=== PATIENT | female | born 1975 | race Caucasian/White ===

== ENCOUNTER 2018-04-13 11:04 | Emergency (ER) | payer SELFPAY ==
[2018-04-13 11:50] VITALS: BP 126/88
--- NOTE | 2018-04-13 12:53 | Emergency Department Report ---
ED Female HPI - General Chief complaint: Urogenital-Female Stated complaint: LWR ABD PAIN/ PRESSURE DURING URINATION Time Seen by Provider: 04/13/18 11:59 Source: patient Mode of arrival: Ambulatory Limitations: No Limitations - History of Present Illness Initial comments: This is a 42-year-old female that presents with urine retention and pelvic pressure this morning. She has a history of hypertension and fibroids and had an ablation in November 2014 but reports symptoms improved after procedure. Patient reports voiding around 4 AM and returning back to sleep. She woke up around 6 AM with urgency and frequency but could not void. She called her primary care provider Dr. Vallejo. Dr. Vallejo nurse told her to take Azo and they will call in a prescription because it could potentially be a urinary tract infection. Patient started taking AZO pressure increased she still was unable to urinate. He decided to come in for evaluation. Denies frequency, urgency, dysuria, fever, chest pain, and shortness of breath. MD Complaint: pelvic pain, other (urinary retention) -: This morning Location: suprapubic Radiation: non-radiating Severity: mild Severity scale (0 -10): 2 Quality: aching Consistency: constant Improves with: urination Worsens with: none Are you Now?: No Associated Symptoms: denies other symptoms. denies: vaginal discharge, vaginal bleeding, abdominal pain, nausea/vomiting, fever/chills, headaches, loss of appetite, dysuria, hematuria, rash, seizure, shortness of breath, syncope, weakness - Related Data Sexually active: Yes Home Medications Medication Instructions Recorded Confirmed Last Taken Ibuprofen [Motrin] 800 mg PO Q8H PRN 10/22/14 10/22/14 10/21/14 Iron Carb,Gl/FA/B12/C/Docusate 1 each PO DAILY 10/22/14 10/22/14 10/21/14 [Ferralet 90 Dual-Iron Tablet] Norgestimate-Ethinyl Estradiol 1 each PO DAILY 10/22/14 10/22/14 10/21/14 [Sprintec 28 Day Tablet] Previous Rx's Medication Instructions Recorded Last Taken Type Meclizine HCl [Antivert] 25 mg PO TID PRN #20 tablet 10/22/14 Unknown Rx amLODIPine [Norvasc] 2.5 mg PO DAILY 30 Days tab 10/22/14 Unknown Rx Phenazopyridine [Pyridium] 200 mg PO TID #6 tab 04/13/18 Unknown Rx Sulfamethoxazole/Trimethoprim 1 each PO BID #6 tablet 04/13/18 Unknown Rx [Bactrim DS TAB] Allergies Allergy/AdvReac Type Severity Reaction Status Date / Time No Known Allergies Allergy Unverified 10/21/14 20:13 ED Review of Systems ROS: Stated complaint: LWR ABD PAIN/ PRESSURE DURING URINATION Other details as noted in HPI Constitutional: denies: chills, fever Respiratory: denies: cough, shortness of breath, wheezing Cardiovascular: denies: chest pain, palpitations Gastrointestinal: abdominal pain (suprapubic pressure). denies: nausea, vomiting, diarrhea Genitourinary: denies: urgency, dysuria, frequency, discharge Musculoskeletal: denies: back pain, joint swelling, arthralgia, myalgia Neurological: denies: headache, weakness, numbness, paresthesias Psychiatric: denies: anxiety, depression ED Past Medical Hx - Past Medical History Hx Hypertension: Yes Additional medical history: Uterine fibroids with the current bleeding - Surgical History Past Surgical History?: No - Social History Smoking Status: Never Smoker Substance Use Type: None - Medications Home Medications: Home Medications Medication Instructions Recorded Confirmed Last Taken Type Ibuprofen [Motrin] 800 mg PO Q8H PRN 10/22/14 10/22/14 10/21/14 History Iron Carb,Gl/FA/B12/C/Docusate 1 each PO DAILY 10/22/14 10/22/14 10/21/14 History [Ferralet 90 Dual-Iron Tablet] Meclizine HCl [Antivert] 25 mg PO TID PRN #20 tablet 10/22/14 Unknown Rx Norgestimate-Ethinyl Estradiol 1 each PO DAILY 10/22/14 10/22/14 10/21/14 History [Sprintec 28 Day Tablet] amLODIPine [Norvasc] 2.5 mg PO DAILY 30 Days tab 10/22/14 Unknown Rx Phenazopyridine [Pyridium] 200 mg PO TID #6 tab 04/13/18 Unknown Rx Sulfamethoxazole/Trimethoprim 1 each PO BID #6 tablet 04/13/18 Unknown Rx [Bactrim DS TAB] ED Physical Exam - General Limitations: No Limitations General appearance: alert, in no apparent distress - Respiratory Respiratory exam: Present: normal lung sounds bilaterally. Absent: respiratory distress - Cardiovascular Cardiovascular Exam: Present: regular rate, normal rhythm, normal heart sounds. Absent: systolic murmur, diastolic murmur, rubs, gallop - GI/Abdominal GI/Abdominal exam: Present: soft, normal bowel sounds. Absent: distended, tenderness, guarding, rebound, rigid, organomegaly, mass - External exam: Present: normal external exam. Absent: erythema, swelling, lesions, lacerations, ecchymosis, bleeding - Back Exam Back exam: Present: normal inspection, full ROM. Absent: CVA tenderness (R), CVA tenderness (L), muscle spasm, paraspinal tenderness, vertebral tenderness, rash noted - Neurological Exam Neurological exam: Present: alert, oriented X3, normal gait - Psychiatric Psychiatric exam: Present: normal affect, normal mood - Skin Skin exam: Present: warm, dry, intact, normal color. Absent: rash ED Course Vital Signs 04/13/18 04/13/18 11:46 13:35 Temperature 97.6 F Pulse Rate 80 Respiratory 20 16 Rate Blood Pressure 126/88 O2 Sat by Pulse 99 Oximetry ED Medical Decision Making - Medical Decision Making This is a 42-year-old female who presents with pelvic pressure and unable to void since this morning. Patient was examined by me. Vitals are normal and in no acute distress. Garber placed and 1000 mL out. Patient reports feeling better. Urinalysis obtained with positive nitrates and blood. Patient unsure of antibiotic called in to pharmacy by Dr. Rogers who is primary care provider. Start bactrim DS po bid x 3 days and pyridium 200 mg po tid x 2 days. Garber removed and instructed to return if she have not voided in 4-6 hours. Increase fluid intake. Discharged home in stable condition. Discussed plan with patient and she agreed with plan. F/U with Dr. Vallejo in 2-3 days. Critical care attestation.: If time is entered above; I have spent that time in minutes in the direct care of this critically ill patient, excluding procedure time. ED Disposition Clinical Impression: UTI (urinary tract infection) Qualifiers: Urinary tract infection type: acute cystitis Hematuria presence: with hematuria Qualified Code(s): N30.01 - Acute cystitis with hematuria Disposition: TO HOME OR SELFCARE Is pt being admited?: No Does the pt Need Aspirin: No Condition: Stable Instructions: Urinary Tract Infection in Women (ED) Additional Instructions: Increase fluid intake to 1-2 L water daily. Complete full course of antibiotics as prescribed. Avoid drinking alcohol beverages while taking antibiotics and up to 24 hours after completion. Follow-up with primary care provider Dr. Vallejo in 2-3 days. Return to ER in 4-6 hours if you have not urinated or have the urgency to. Prescriptions: Phenazopyridine [Pyridium] 200 mg PO TID #6 tab Sulfamethoxazole/Trimethoprim [Bactrim DS TAB] 1 each PO BID #6 tablet Referrals: [facility] [Provider Group] - 3-5 Days [facility] [Provider Group] - 3-5 Days Time of Disposition: 14:05 Print Language: VIETNAMESE
[2018-04-13 13:12] LABS: Bilirubin,Urine NEG (Negative); Blood,Urine SM (Negative); Color,Urine Amber (Yellow); Protein,Urine <15 mg/dL mg/dL (Negative); WBC,Urine < 1.0 /HPF (0.0-6.0)
== END 2018-04-13 14:44 | disposition home or self-care (01) ==
LOC: ED 11:04
DX: N30.01 Acute cystitis with hematuria (principal); I10 Essential (primary) hypertension; D25.9 Leiomyoma of uterus, unspecified
CPT/HCPCS: 51701; 81001

== ENCOUNTER 2018-06-30 12:51 | Emergency (ER) | payer SELFPAY ==
[2018-06-30 12:59] VITALS: BP 123/85
[2018-06-30] MEDS ORDERED: MOTRIN PO ONE (13:36)
--- NOTE | 2018-06-30 13:37 | Emergency Department Report ---
ED Female HPI - General Chief complaint: Urogenital-Female Stated complaint: UNABLE TO URINATE Time Seen by Provider: 06/30/18 13:04 Source: patient Mode of arrival: Ambulatory Limitations: No Limitations - History of Present Illness Initial comments: 43 yo female with a past medical history hypertension, uterine fibroids, and one episode of urinary retention in March presents to the hospital complaining of inability to urinate since last night. Patient complains of 10/10 suprapubic pain with palpation with abdominal distention. No nausea, vomiting, or fever reported. Patient had several days of preceding dysuria. Patient was seen and evaluated here 04/13/2018 for urinary retention and UTI. Initial urinalysis of 1000 mL's reported after Jaeger insertion. Patient states the Jaeger was removed prior to her discharge she had no problems urinating until today. She was discharged on antibiotics and Pyridium time. She did follow with her primary care doctor but was not evaluated by a urologist. - Related Data Home Medications Medication Instructions Recorded Confirmed Last Taken Ibuprofen [Motrin] 800 mg PO Q8H PRN 10/22/14 10/22/14 10/21/14 Iron Carb,Gl/FA/B12/C/Docusate 1 each PO DAILY 10/22/14 10/22/14 10/21/14 [Ferralet 90 Dual-Iron Tablet] Norgestimate-Ethinyl Estradiol 1 each PO DAILY 10/22/14 10/22/14 10/21/14 [Sprintec 28 Day Tablet] Previous Rx's Medication Instructions Recorded Last Taken Type Meclizine HCl [Antivert] 25 mg PO TID PRN #20 tablet 10/22/14 Unknown Rx RX: amLODIPine [Norvasc] 2.5 mg PO DAILY 30 Days tab 10/22/14 Unknown Rx Sulfamethoxazole/Trimethoprim 1 each PO BID #6 tablet 04/13/18 Unknown Rx [Bactrim DS TAB] Ibuprofen [Motrin] 600 mg PO Q8H PRN #20 tablet 06/30/18 Unknown Rx Nitrofurantoin Monohyd/M-Cryst 100 mg PO BID #10 capsule 06/30/18 Unknown Rx [Macrobid 100 mg Capsule] RX: Phenazopyridine [Pyridium] 200 mg PO TID #6 tab 06/30/18 Unknown Rx Allergies Allergy/AdvReac Type Severity Reaction Status Date / Time No Known Allergies Allergy Verified 06/30/18 12:57 ED Review of Systems ROS: Stated complaint: UNABLE TO URINATE Other details as noted in HPI Comment: All other systems reviewed and negative ED Past Medical Hx - Past Medical History Hx Hypertension: Yes Additional medical history: Uterine fibroids with the current bleeding - Social History Smoking Status: Never Smoker Substance Use Type: None - Medications Home Medications: Home Medications Medication Instructions Recorded Confirmed Last Taken Type Ibuprofen [Motrin] 800 mg PO Q8H PRN 10/22/14 10/22/14 10/21/14 History Iron Carb,Gl/FA/B12/C/Docusate 1 each PO DAILY 10/22/14 10/22/14 10/21/14 History [Ferralet 90 Dual-Iron Tablet] Meclizine HCl [Antivert] 25 mg PO TID PRN #20 tablet 10/22/14 Unknown Rx Norgestimate-Ethinyl Estradiol 1 each PO DAILY 10/22/14 10/22/14 10/21/14 History [Sprintec 28 Day Tablet] RX: amLODIPine [Norvasc] 2.5 mg PO DAILY 30 Days tab 10/22/14 Unknown Rx Sulfamethoxazole/Trimethoprim 1 each PO BID #6 tablet 04/13/18 Unknown Rx [Bactrim DS TAB] Ibuprofen [Motrin] 600 mg PO Q8H PRN #20 tablet 06/30/18 Unknown Rx Nitrofurantoin Monohyd/M-Cryst 100 mg PO BID #10 capsule 06/30/18 Unknown Rx [Macrobid 100 mg Capsule] RX: Phenazopyridine [Pyridium] 200 mg PO TID #6 tab 06/30/18 Unknown Rx ED Physical Exam - General Limitations: No Limitations - Other Other exam information: General: No limitations, patient is alert in no acute distress Head exam: Atraumatic, normocephalic Eyes exam: Normal appearance ENT: Moist mucous membrane, normal oropharynx Neck exam: Normal inspection, full range of motion, no meningismus nontender Respiratory exam: Clear to auscultation bilateral, no wheezes, rales, crackles Cardiovascular: Normal rate and rhythm, normal heart sounds Abdomen: Soft, nondistended (after Jaeger insertion), and suprapubic tenderness, with normal bowel sounds, no rebound, or guarding : Jaeger inserted by RN with several 100 mL initial output Extremity: Full range of motion normal inspection no deformity Back: Normal Inspection, full range of motion, no tenderness Neurologic: Alert, oriented x3, cranial nerves intact, no motor or sensory deficit Psychiatric: normal affect, normal mood Skin: Warm, dry, intact ED Course Vital Signs 06/30/18 12:57 Temperature 98.7 F Pulse Rate 75 Respiratory 16 Rate Blood Pressure 123/85 O2 Sat by Pulse 100 Oximetry ED Medical Decision Making - Lab Data Result diagrams: 06/30/18 13:18 06/30/18 13:18 Lab Results 06/30/18 06/30/18 06/30/18 Range/Units 13:03 13:18 13:18 WBC 6.3 (4.5-11.0) K/mm3 RBC 4.85 (3.65-5.03) M/mm3 Hgb 14.5 H (10.1-14.3) gm/dl Hct 42.6 (30.3-42.9) % MCV 88 (79-97) fl MCH 30 (28-32) pg MCHC 34 (30-34) % RDW 13.3 (13.2-15.2) % Plt Count 270 (140-440) K/mm3 Lymph % (Auto) 28.2 (13.4-35.0) % [place] % (Auto) 9.3 H (0.0-7.3) % Eos % (Auto) 4.5 H (0.0-4.3) % Baso % (Auto) 0.5 (0.0-1.8) % Lymph # 1.8 (1.2-5.4) K/mm3 [place] # 0.6 (0.0-0.8) K/mm3 Eos # 0.3 (0.0-0.4) K/mm3 Baso # 0.0 (0.0-0.1) K/mm3 Seg Neutrophils % 57.5 (40.0-70.0) % Seg Neutrophils # 3.6 (1.8-7.7) K/mm3 Sodium 135 L (137-145) mmol/L Potassium 3.9 (3.6-5.0) mmol/L Chloride 100.0 (98-107) mmol/L Carbon Dioxide 24 (22-30) mmol/L Anion Gap 15 mmol/L BUN 5 L (7-17) mg/dL Creatinine 0.6 L (0.7-1.2) mg/dL Estimated GFR > 60 ml/min BUN/Creatinine Ratio 8 % Glucose 92 (65-100) mg/dL Calcium 8.8 (8.4-10.2) mg/dL Urine Color [place] (Yellow) Urine Turbidity Clear (Clear) Urine pH 7.0 (5.0-7.0) Ur Specific [place] 1.003 (1.003-1.030) Urine Protein <15 mg/dl (Negative) mg/dL Urine Glucose (UA) Neg (Negative) mg/dL Urine Ketones Neg (Negative) mg/dL Urine Blood Mod (Negative) Urine Nitrite Pos (Negative) Urine Bilirubin Neg (Negative) Urine Urobilinogen < 2.0 (<2.0) mg/dL Ur Leukocyte Esterase Neg (Negative) Urine WBC (Auto) 0.0 (0.0-6.0) /HPF Urine RBC (Auto) 8.0 (0.0-6.0) /HPF - Medical Decision Making urine retention + uop after jaeger ua + nitrates: macrobid initiated motrin for pain will d/c with meds pt declines to keep jaeger inserted warned of possibility of recurrent obstruction Urology f/u provided - Differential Diagnosis urinary retention, UTI, renal failure Critical Care Time: No Critical care attestation.: If time is entered above; I have spent that time in minutes in the direct care of this critically ill patient, excluding procedure time. ED Disposition Clinical Impression: Urine retention, UTI (urinary tract infection) Disposition: TO HOME OR SELFCARE Is pt being admited?: No Does the pt Need Aspirin: No Condition: Stable Instructions: Urinary Tract Infection in Women (ED), Acute Urinary Retention in Women (ED) Additional Instructions: Take the medication as prescribed. Follow up with your doctor and urologist. Return if symptoms worsen as indicated by your discharge instructions Prescriptions: Ibuprofen [Motrin] 600 mg PO Q8H PRN #20 tablet PRN Reason: Pain Nitrofurantoin Monohyd/M-Cryst [Macrobid 100 mg Capsule] 100 mg PO BID #10 capsule RX: Phenazopyridine [Pyridium] 200 mg PO TID #6 tab Referrals: PRIMARY CARE, [Primary Care Provider] - 3-5 Days CAMERON LEÓN MD [Staff Physician] - 3-5 Days (Urologist) Time of Disposition: 14:56
[2018-06-30 13:38] LABS: Basophils % (Auto) 0.5 % (0.0-1.8); Eosinophils # (Auto) 0.3 K/mm3 (0.0-0.4); Eosinophils % (Auto) 4.5 % (0.0-4.3); Hematocrit 42.6 % (30.3-42.9); Hemoglobin 14.5 gm/dl (10.1-14.3); Lymphocytes # (Auto) 1.8 K/mm3 (1.2-5.4); Lymphocytes % (Auto) 28.2 % (13.4-35.0); Mean Corpuscular HGB Conc 34 % (30-34); Mean Corpuscular Hemoglobin 30 pg (28-32); Mean Corpuscular Volume 88 fl (79-97); Monocytes # (Auto) 0.6 K/mm3 (0.0-0.8); Monocytes % (Auto) 9.3 % (0.0-7.3); Platelet Count 270 K/mm3 (140-440); Red Blood Count 4.85 M/mm3 (3.65-5.03); Red Cell Distribution Width 13.3 % (13.2-15.2)
[2018-06-30 13:51] LABS: Bilirubin,Urine NEG (Negative); Blood,Urine MOD (Negative); Color,Urine Amber (Yellow); Protein,Urine <15 mg/dL mg/dL (Negative); Urobilinogen,Urine < 2.0 mg/dL (<2.0)
[2018-06-30] MEDS ORDERED: MACROBID PO ONE (14:28)
[2018-06-30] MEDS ORDERED: MACROBID ONE (14:42)
[2018-06-30 14:48] LABS: BUN/Creatinine Ratio 8; Blood Urea Nitrogen 5 mg/dL (7-17); Calcium 8.8 mg/dL (8.4-10.2); Hemolysis Index 7
== END 2018-06-30 15:15 | disposition home or self-care (01) ==
LOC: ED 12:51
DX: N39.0 Urinary tract infection, site not specified (principal); R33.9 Retention of urine, unspecified; I10 Essential (primary) hypertension; Z79.899 Other long term (current) drug therapy
CPT/HCPCS: 36415; 80048; 81001; 85025; 87086; 99283

== ENCOUNTER 2019-01-07 10:11 | Emergency (ER) | payer OTHER ==
[2019-01-07 10:38] VITALS: BP 134/70
[2019-01-07 11:18] LABS: Basophils % (Auto) 0.4 % (0.0-1.8); Eosinophils # (Auto) 0.3 K/mm3 (0.0-0.4); Eosinophils % (Auto) 5.3 % (0.0-4.3); Hematocrit 39.9 % (30.3-42.9); Hemoglobin 13.5 gm/dl (10.1-14.3); Lymphocytes # (Auto) 1.6 K/mm3 (1.2-5.4); Lymphocytes % (Auto) 26.6 % (13.4-35.0); Mean Corpuscular HGB Conc 34 % (30-34); Mean Corpuscular Volume 89 fl (79-97); Monocytes # (Auto) 0.6 K/mm3 (0.0-0.8); Monocytes % (Auto) 9.4 % (0.0-7.3); Platelet Count 258 K/mm3 (140-440); Red Blood Count 4.51 M/mm3 (3.65-5.03); Red Cell Distribution Width 13.3 % (13.2-15.2)
[2019-01-07 11:22] LABS: Bilirubin,Urine NEG (Negative); Blood,Urine SM (Negative); Color,Urine Straw (Yellow); Protein,Urine <15 mg/dL mg/dL (Negative); RBC,Urine < 1.0 /HPF (0.0-6.0); Urobilinogen,Urine < 2.0 mg/dL (<2.0); WBC,Urine < 1.0 /HPF (0.0-6.0)
[2019-01-07 11:57] LABS: BUN/Creatinine Ratio 20; Blood Urea Nitrogen 8 mg/dL (7-17); Calcium 8.6 mg/dL (8.4-10.2); Hemolysis Index 15
--- NOTE | 2019-01-07 12:22 | Emergency Department Report ---
ED Female HPI - General Chief complaint: Abdominal Pain Stated complaint: NO URINATION Time Seen by Provider: 01/07/19 10:51 Source: patient Mode of arrival: Ambulatory Limitations: No Limitations - History of Present Illness Initial comments: Patient is a 34-year-old [place] female who is presenting with urinary retention. Patient states she has not been able to pass urine since E late last night. Patient is a pressure-like sensation in the suprapubic region was radiation to her lower back. Patient states this is occurred twice before and she states she saw a urologist in the past stated that if this ever happens again to make an appointment to see them. There were no procedures were done. Patient states she has a CT scan scheduled for tomorrow by her primary care physician. Patient states last time this occurs she was straight cathed but did not want a Garber catheter at that time. This was several months ago. Patient denies any nausea vomiting fevers chills flank pain at this time. Severity scale (0 -10): 6 Quality: aching Consistency: constant - Related Data Home Medications Medication Instructions Recorded Confirmed Last Taken Ibuprofen [Motrin] 800 mg PO Q8H PRN 10/22/14 10/22/14 10/21/14 Iron Carb,Gl/FA/B12/C/Docusate 1 each PO DAILY 10/22/14 10/22/14 10/21/14 [Ferralet 90 Dual-Iron Tablet] Norgestimate-Ethinyl Estradiol 1 each PO DAILY 10/22/14 10/22/14 10/21/14 [Sprintec 28 Day Tablet] Previous Rx's Medication Instructions Recorded Last Taken Type Meclizine HCl [Antivert] 25 mg PO TID PRN #20 tablet 10/22/14 Unknown Rx amLODIPine [Norvasc] 2.5 mg PO DAILY 30 Days tab 10/22/14 Unknown Rx Sulfamethoxazole/Trimethoprim 1 each PO BID #6 tablet 04/13/18 Unknown Rx [Bactrim DS TAB] Ibuprofen [Motrin] 600 mg PO Q8H PRN #20 tablet 06/30/18 Unknown Rx Nitrofurantoin Monohyd/M-Cryst 100 mg PO BID #10 capsule 06/30/18 Unknown Rx [Macrobid 100 mg Capsule] Phenazopyridine [Pyridium] 200 mg PO TID #6 tab 06/30/18 Unknown Rx Nitrofurantoin Monohyd/M-Cryst 100 mg PO BID #10 capsule 01/07/19 Unknown Rx [Macrobid 100 mg Capsule] Phenazopyridine [Pyridium] 100 mg PO TID 2 Days tab 01/07/19 Unknown Rx Allergies Allergy/AdvReac Type Severity Reaction Status Date / Time No Known Allergies Allergy Verified 06/30/18 12:57 ED Review of Systems ROS: Stated complaint: NO URINATION Other details as noted in HPI Comment: All other systems reviewed and negative ED Past Medical Hx - Past Medical History Previous Medical History?: Yes Hx Hypertension: Yes Additional medical history: Uterine fibroids with the current bleeding. urinary retention x 3 - Surgical History Past Surgical History?: No - Social History Smoking Status: Unknown if ever smoked Substance Use Type: None - Medications Home Medications: Home Medications Medication Instructions Recorded Confirmed Last Taken Type Ibuprofen [Motrin] 800 mg PO Q8H PRN 10/22/14 10/22/14 10/21/14 History Iron Carb,Gl/FA/B12/C/Docusate 1 each PO DAILY 10/22/14 10/22/14 10/21/14 History [Ferralet 90 Dual-Iron Tablet] Meclizine HCl [Antivert] 25 mg PO TID PRN #20 tablet 10/22/14 Unknown Rx Norgestimate-Ethinyl Estradiol 1 each PO DAILY 10/22/14 10/22/14 10/21/14 History [Sprintec 28 Day Tablet] amLODIPine [Norvasc] 2.5 mg PO DAILY 30 Days tab 10/22/14 Unknown Rx Sulfamethoxazole/Trimethoprim 1 each PO BID #6 tablet 04/13/18 Unknown Rx [Bactrim DS TAB] Ibuprofen [Motrin] 600 mg PO Q8H PRN #20 tablet 06/30/18 Unknown Rx Nitrofurantoin Monohyd/M-Cryst 100 mg PO BID #10 capsule 06/30/18 Unknown Rx [Macrobid 100 mg Capsule] Phenazopyridine [Pyridium] 200 mg PO TID #6 tab 06/30/18 Unknown Rx Nitrofurantoin Monohyd/M-Cryst 100 mg PO BID #10 capsule 01/07/19 Unknown Rx [Macrobid 100 mg Capsule] Phenazopyridine [Pyridium] 100 mg PO TID 2 Days tab 01/07/19 Unknown Rx ED Physical Exam - General Limitations: No Limitations General appearance: alert, in no apparent distress - Head Head exam: Present: atraumatic, normocephalic - Eye Eye exam: Present: normal appearance - ENT ENT exam: Present: mucous membranes moist - Neck Neck exam: Present: normal inspection - Respiratory Respiratory exam: Present: normal lung sounds bilaterally. Absent: respiratory distress, wheezes, rales - Cardiovascular Cardiovascular Exam: Present: regular rate, normal rhythm. Absent: systolic murmur, diastolic murmur, rubs, gallop - GI/Abdominal GI/Abdominal exam: Present: soft, distended, tenderness, normal bowel sounds. Absent: guarding, rebound, rigid - Extremities Exam Extremities exam: Present: normal inspection - Back Exam Back exam: Present: normal inspection - Neurological Exam Neurological exam: Present: alert, oriented X3 - Psychiatric Psychiatric exam: Present: normal affect, normal mood - Skin Skin exam: Present: warm, dry, intact, normal color. Absent: rash ED Course Vital Signs 01/07/19 01/07/19 10:37 10:50 Temperature 97.9 F Pulse Rate 79 Respiratory 18 18 Rate Blood Pressure 134/70 O2 Sat by Pulse 98 Oximetry ED Medical Decision Making - Lab Data Result diagrams: 01/07/19 11:08 01/07/19 11:08 Lab Results 01/07/19 01/07/19 01/07/19 Range/Units 10:55 11:08 11:08 WBC 6.1 (4.5-11.0) K/mm3 RBC 4.51 (3.65-5.03) M/mm3 Hgb 13.5 (10.1-14.3) gm/dl Hct 39.9 (30.3-42.9) % MCV 89 (79-97) fl MCH 30 (28-32) pg MCHC 34 (30-34) % RDW 13.3 (13.2-15.2) % Plt Count 258 (140-440) K/mm3 Lymph % (Auto) 26.6 (13.4-35.0) % [place] % (Auto) 9.4 H (0.0-7.3) % Eos % (Auto) 5.3 H (0.0-4.3) % Baso % (Auto) 0.4 (0.0-1.8) % Lymph # 1.6 (1.2-5.4) K/mm3 [place] # 0.6 (0.0-0.8) K/mm3 Eos # 0.3 (0.0-0.4) K/mm3 Baso # 0.0 (0.0-0.1) K/mm3 Seg Neutrophils % 58.3 (40.0-70.0) % Seg Neutrophils # 3.6 (1.8-7.7) K/mm3 Sodium 136 L (137-145) mmol/L Potassium 4.1 (3.6-5.0) mmol/L Chloride 106.0 (98-107) mmol/L Carbon Dioxide 25 (22-30) mmol/L Anion Gap 9 mmol/L BUN 8 (7-17) mg/dL Creatinine 0.4 L (0.7-1.2) mg/dL Estimated GFR > 60 ml/min BUN/Creatinine Ratio 20 % Glucose 109 H (65-100) mg/dL Calcium 8.6 (8.4-10.2) mg/dL Urine Color [place] (Yellow) Urine Turbidity Clear (Clear) Urine pH 7.0 (5.0-7.0) Ur Specific [place] 1.004 (1.003-1.030) Urine Protein <15 mg/dl (Negative) mg/dL Urine Glucose (UA) Neg (Negative) mg/dL Urine Ketones Neg (Negative) mg/dL Urine Blood Sm (Negative) Urine Nitrite Neg (Negative) Urine Bilirubin Neg (Negative) Urine Urobilinogen < 2.0 (<2.0) mg/dL Ur Leukocyte Esterase Neg (Negative) Urine WBC (Auto) < 1.0 (0.0-6.0) /HPF Urine RBC (Auto) < 1.0 (0.0-6.0) /HPF - Medical Decision Making Straight cath was performed and 1 L of clear urine was drained. The patient did immediately have relief. A Garber catheter was then placed and patient was given a leg bag. There is suggested the patient keep the Garber for the next 2-3 days. Also the patient would like a referral to another urologist. Dr. Knowles is on-call and his information is been given for follow-up. Patient's urinalysis is within normal limits and does not show any evidence of infection however the patient will be placed empirically on Macrobid to assure that the patient does not developed a DVT. Critical care attestation.: If time is entered above; I have spent that time in minutes in the direct care of this critically ill patient, excluding procedure time. ED Disposition Clinical Impression: Urinary retention Disposition: - TO HOME OR SELFCARE Is pt being admited?: No Does the pt Need Aspirin: No Condition: Stable Instructions: Acute Urinary Retention in Women (ED) Additional Instructions: Please follow up with Dr. Knowles to have the Garber catheter removed. She unable to follow-up with urologist please return to the emergency department or go to an urgent care to have it removed in the next 3-5 days. Referrals: SAMUEL KNOWLES MD [Staff Physician] - 3-5 Days Time of Disposition: 12:21
== END 2019-01-07 12:25 | disposition home or self-care (01) ==
LOC: ED 10:11
DX: R33.9 Retention of urine, unspecified (principal); R10.30 Lower abdominal pain, unspecified; I10 Essential (primary) hypertension
CPT/HCPCS: 36415; 51702; 80048; 81001; 85025

== ENCOUNTER 2021-03-19 14:02 | Emergency (ER) | payer SELFPAY ==
[2021-03-19 14:11] VITALS: BP 133/82
[2021-03-19] MEDS ORDERED: ASPIRIN 325 MG TAB PO ONE (14:40)
--- NOTE | 2021-03-19 15:01 | XRay Report ---
CHEST 2 VIEWS INDICATION / CLINICAL INFORMATION: chest pain. COMPARISON: None available. FINDINGS: SUPPORT DEVICES: None. HEART / MEDIASTINUM: No significant abnormality. LUNGS / PLEURA: No significant pulmonary or pleural abnormality. No pneumothorax. ADDITIONAL FINDINGS: No significant additional findings. IMPRESSION: 1. No acute findings. Signer Name: Popeye Wray MD Signed: 03/19/2021 2:57 PM Workstation Name: [id number]
[2021-03-19 15:23] LABS: Basophils % (Auto) 0.3 % (0.0-1.8); Eosinophils # (Auto) 0.3 K/mm3 (0.0-0.4); Eosinophils % (Auto) 4.3 % (0.0-4.3); Hematocrit 42.4 % (30.3-42.9); Hemoglobin 14.4 gm/dl (10.1-14.3); Lymphocytes # (Auto) 2.5 K/mm3 (1.2-5.4); Lymphocytes % (Auto) 33.9 % (13.4-35.0); Mean Corpuscular HGB Conc 34 % (30-34); Mean Corpuscular Volume 89 fl (79-97); Monocytes # (Auto) 0.8 K/mm3 (0.0-0.8); Monocytes % (Auto) 10.7 % (0.0-7.3); Platelet Count 277 K/mm3 (140-440); Red Blood Count 4.76 M/mm3 (3.65-5.03); Red Cell Distribution Width 13.9 % (13.2-15.2)
[2021-03-19 15:41] LABS: Alanine Aminotransferase 29 units/L (7-56); Blood Urea Nitrogen 6 mg/dL (7-17); Calcium 9.2 mg/dL (8.4-10.2); Hemolysis Index 12
[2021-03-19 15:44] LABS: BUN/Creatinine Ratio 15
--- NOTE | 2021-03-19 17:36 | Emergency Department Report ---
ED General Adult HPI - General Chief complaint: Chest Pain Stated complaint: CHEST PAIN Time Seen by Provider: 03/19/21 17:32 Source: patient Mode of arrival: Ambulatory Limitations: No Limitations - History of Present Illness Initial comments: 45-year-old female patient with history of hypertension and hyperlipidemia presents to the emergency department with complaints of left-sided chest pain starting yesterday morning. Patient describes the pain as "cramping," intermittent, nonradiating, not related to exertion. Patient is compliant with her antihypertensive medication regimen and manages her cholesterol levels with dietary modifications. No history of tobacco use. No history of diabetes. No venous thromboembolism risk factors identified on history. Denies fever, chills, cough, shortness of breath, palpitations, syncope, nausea, vomiting, diaphoresis, lower extremity pain/swelling, wheezing. Denies all other complaints at this time. - Related Data Home Medications Medication Instructions Recorded Confirmed Last Taken Ibuprofen [Motrin] 800 mg PO Q8H PRN 10/22/14 10/22/14 10/21/14 Iron Carb,Gl/FA/B12/C/Docusate 1 each PO DAILY 10/22/14 10/22/14 10/21/14 [Ferralet 90 Dual-Iron Tablet] Norgestimate-Ethinyl Estradiol 1 each PO DAILY 10/22/14 10/22/14 10/21/14 [Sprintec 28 Day Tablet] Previous Rx's Medication Instructions Recorded Last Taken Type Meclizine HCl [Antivert] 25 mg PO TID PRN #20 tablet 10/22/14 Unknown Rx amLODIPine 2.5 mg PO DAILY 30 Days tab 10/22/14 Unknown Rx Sulfamethoxazole/Trimethoprim 1 each PO BID #6 tablet 04/13/18 Unknown Rx [Bactrim DS TAB] Ibuprofen [Motrin] 600 mg PO Q8H PRN #20 tablet 06/30/18 Unknown Rx Nitrofurantoin Monohyd/M-Cryst 100 mg PO BID #10 capsule 06/30/18 Unknown Rx [Macrobid 100 mg Capsule] Phenazopyridine [Pyridium] 200 mg PO TID #6 tab 06/30/18 Unknown Rx Nitrofurantoin Monohyd/M-Cryst 100 mg PO BID #10 capsule 01/07/19 Unknown Rx [Macrobid 100 mg Capsule] Phenazopyridine [Pyridium] 100 mg PO TID 2 Days tab 01/07/19 Unknown Rx Naproxen 500 mg PO BID #20 tablet 03/19/21 Unknown Rx Allergies Allergy/AdvReac Type Severity Reaction Status Date / Time No Known Allergies Allergy Verified 06/30/18 12:57 ED Review of Systems ROS: Stated complaint: CHEST PAIN Other details as noted in HPI Other: GENERAL: Negative for fever, chills, weight change, anorexia, fatigue. ENT: Negative for ear pain, difficulty hearing, sore throat, nasal congestion, epistaxis. CARDIOVASCULAR: Positive for chest pain. PULMONARY: Negative for cough, dyspnea, wheezing, orthopnea, cyanosis. GASTROINTESTINAL: Negative for abdominal pain, nausea, vomiting, diarrhea, con stipation. MUSCULOSKELETAL: Negative for joint pain, joint swelling, myalgias, back pain, neck pain. NEUROLOGICAL: Negative for headache, seizure, syncope, paresthesias, weakness. INTEGUMENTARY: Negative for erythema, rash, diaphoresis, laceration, ecchymosis. HEMATOLOGICAL: Negative for hemoptysis, hematemesis, hematochezia, hematuria. PSYCHIATRIC: Negative for hallucinations, suicidal ideation, homicidal ideation, anxiety, depression. ED Past Medical Hx - Past Medical History Previous Medical History?: Yes Hx Hypertension: Yes Additional medical history: Uterine fibroids with the current bleeding. urinary retention x 3 - Social History Smoking Status: Unknown if ever smoked Substance Use Type: None - Medications Home Medications: Home Medications Medication Instructions Recorded Confirmed Last Taken Type Ibuprofen [Motrin] 800 mg PO Q8H PRN 10/22/14 10/22/14 10/21/14 History Iron Carb,Gl/FA/B12/C/Docusate 1 each PO DAILY 10/22/14 10/22/14 10/21/14 History [Ferralet 90 Dual-Iron Tablet] Meclizine HCl [Antivert] 25 mg PO TID PRN #20 tablet 10/22/14 Unknown Rx Norgestimate-Ethinyl Estradiol 1 each PO DAILY 10/22/14 10/22/14 10/21/14 History [Sprintec 28 Day Tablet] amLODIPine 2.5 mg PO DAILY 30 Days tab 10/22/14 Unknown Rx Sulfamethoxazole/Trimethoprim 1 each PO BID #6 tablet 04/13/18 Unknown Rx [Bactrim DS TAB] Ibuprofen [Motrin] 600 mg PO Q8H PRN #20 tablet 06/30/18 Unknown Rx Nitrofurantoin Monohyd/M-Cryst 100 mg PO BID #10 capsule 06/30/18 Unknown Rx [Macrobid 100 mg Capsule] Phenazopyridine [Pyridium] 200 mg PO TID #6 tab 06/30/18 Unknown Rx Nitrofurantoin Monohyd/M-Cryst 100 mg PO BID #10 capsule 01/07/19 Unknown Rx [Macrobid 100 mg Capsule] Phenazopyridine [Pyridium] 100 mg PO TID 2 Days tab 01/07/19 Unknown Rx Naproxen 500 mg PO BID #20 tablet 03/19/21 Unknown Rx ED Physical Exam - General Limitations: No Limitations - Other Other exam information: General: Awake and alert. No acute distress. Head: Atraumatic, normocephalic. Eyes: EOMI. Pupils are equal and round. Normal sclera and conjunctiva. ENT: Oral mucosa is moist. Normal pharyngeal exam. Neck: Supple. No lymphadenopathy. Pulmonary: No respiratory distress. Clear to auscultation bilaterally. Cardiac: Regular rate and rhythm. Pulses are palpable and equal bilaterally. No lower extremity cyanosis or edema. Skin: Warm and dry. No rashes. Abdomen: Soft, non-tender, non-protuberant. No guarding, rigidity, or rebound. Bowel sounds are normal. No organomegaly or masses noted. Back: Normal alignment. No CVA tenderness. Extremities: Symmetrical. Full range of motion intact. Neurological: Alert and oriented, appropriately interactive, no focal deficits. Psych: Cooperative. Appropriate mood and affect. Speech is evenly metered. Thoughts are logically construed. ED Course Vital Signs 03/19/21 14:10 Temperature 98.4 F Pulse Rate 73 Respiratory 16 Rate Blood Pressure 133/82 [Right] O2 Sat by Pulse 99 Oximetry ED Medical Decision Making - Lab Data Result diagrams: 03/19/21 14:57 03/19/21 14:57 - EKG Data 03/19/21 17:36 EKG shows normal sinus rhythm with a ventricular rate of 64 bpm. Normal axis. Normal MA interval. Normal QT interval. Good R wave progression. No ST segment changes. Over read by attending emergency physician, who agrees with this interpretation. - Medical Decision Making Differential diagnosis including but not limited to: acute coronary syndrome, cardiac arrhythmia, pericarditis, pericardial effusion/cardiac tamponade, myocarditis, pulmonary embolism, pleural effusion, pneumothorax, pneumonia, valvular disease Patient presents to the emergency department with signs and/or symptoms that arise low risk clinical suspicion for pulmonary embolism. The patient has none of the following clinical criteria: age >50, heart rate >100, room air O2 saturation <94%, history of DVT/PE, recent trauma/surgery, hemoptysis, exogenous estrogen, or signs/symptoms of DVT. As a result, this patient has very low probability of pulmonary embolism and further testing is not indicated. On re-evaluation, the patient is well-appearing, vital signs are stable, and pain is controlled. EKG without overt evidence of STEMI, Brugada syndrome, delta wave, significantly prolonged QT, or life-threatening arrhythmia. Supervising physician is in agreement with EKG interpretation. Initial troponin within normal limits. Low clinical suspicion for other life-threatening intrathoracic pathology including but not limited to: pulmonary embolism, aortic aneurysm/dissection, pneumothorax, or pneumonia. The patient is at low risk (0.9%-2.7%) of experiencing a major cardiac event within the next six weeks according to the HEART score guidelines. The patient has no known history of coronary artery disease and is therefore a candidate for risk stratification using the HEART pathway. It has been explained to the patient that the HEART score/pathway are adjunct decision-making tools and are not designed to replace clinical judgment. Shared decision making was implemented and the patient has agreed to undergo additional testing as recommended by the HEART pathway guidelines. On reevaluation, patient remains stable. Repeat troponin within normal limits. History and exam findings suggestive of musculoskeletal pain. Patient will be discharged home with appropriate analgesics and instructed to follow-up with her primary care provider next week. Strict return precautions provided. Additionally, it has been explained to the patient that the primary purpose of this evaluation was to identify whether or not an acute coronary syndrome was present, and that the results of todays evaluation do not reliably exclude underlying coronary artery disease. Patient expressed understanding and was given the opportunity to ask questions, all of which were satisfactorily answered prior to discharge home. Written instructions and appropriate prescriptions/referrals provided. Critical care attestation.: If time is entered above; I have spent that time in minutes in the direct care of this critically ill patient, excluding procedure time. ED Disposition Clinical Impression: Nonspecific chest pain Disposition: TO HOME OR SELFCARE Is pt being admited?: No Does the pt Need Aspirin: No Condition: Stable Instructions: Nonspecific Chest Pain, Adult Additional Instructions: Take Tylenol every four hours as needed for pain. Take Naproxen twice daily with food as needed for pain. Apply heat to affected area as needed for pain. Follow-up with your primary care provider next week. Call Monday to schedule an appointment. Bring a copy of today's results with you to your follow-up appointment. Return to the emergency department immediately for new or worsening symptoms. Specifically, return to the emergency department immediately for fever, difficu lty breathing, worsening chest pain, pain/swelling in your legs, loss of consciousness, or any other concerns. Prescriptions: Naproxen 500 mg PO BID #20 tablet Referrals: [facility] [Provider Group] - 3-5 Days Time of Disposition: 19:11 HEART Score - HEART Score History: Slightly suspicious EKG: Normal Age: < 45 Risk factors: 1-2 risk factors Troponin: Troponin T < 0.010 ng/mL (0.00-0.029) 03/19/21 17:20 Troponin: < normal limit HEART Score: 1 - Critical Actions Critical Actions: 0-3 pts:0.9-1.7%risk of adverse cardiac event.Candidate for discharge
--- NOTE | 2021-03-22 11:50 | Electrocardiograph Report ---
[facility] Test Date: 2021-03-19 Test Time: 14:22:30 Pat Name: [place] SHRESTHA Department: Room: Gender: F Veterans' Coordinator: [id number] : 1975 Requested By: ALEJANDRA GERONIMO Order Number: [id number] Reading MD: Guero Holcomb Measurements Intervals [place] Rate: 64 P: 23 UT: 139 QRS: 77 QRSD: 78 T: 70 QT: 409 QTc: 421 Interpretive Statements Sinus rhythm No previous ECG available for comparison Electronically Signed On 03-22-2021 11:49:52 EDT by Guero Holcomb
== END 2021-03-19 19:26 | disposition home or self-care (01) ==
LOC: ED 14:02
DX: R07.89 Other chest pain (principal); I10 Essential (primary) hypertension; Z79.899 Other long term (current) drug therapy
CPT/HCPCS: 36415; 71046; 80053; 84484; 85025; 93005